=== PATIENT | female | born 2000 | race Caucasian/White ===

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

== ENCOUNTER 2022-12-13 23:54 | Inpatient (IN) | payer MEDICAID ==
[~2022-12-13] VITALS: Ht 167.6 cm; Wt 97.7 kg
[2022-12-14] VITALS (51 sets, daily range): BP systolic 84–136; BP diastolic 49–88; PULSE 57–111; TEMP 97.7–98.4
[2022-12-14 01:30] LABS: BASO % 0.2 % (0.0-2.0); EOS # 0.2 K/mm3 (0.0-0.7); EOS % 2.2 % (0.0-4.0); GRAN # 6.2 K/mm3 (1.4-6.5); GRAN % 63.3 % (42.2-75.2); HEMOGLOBIN 11.9 g/dl (12.5-16.0); LYMPH # 2.7 K/mm3 (1.2-3.4); LYMPH % 27.3 % (20.0-51.0); MEAN CELL VOLUME 94 fl (80.0-100.0); MEAN CORPUSCULAR HEMOGLOBIN 33 pg (27-31); MEAN CORPUSCULAR HGB CONC 35 g/dl (33.0-37.0); MEAN PLATELET VOLUME 8.9 fl (7.4-10.4); MONO # 0.7 K/mm3 (0.1-0.6); MONO % 6.6 % (1.7-9.3); PLATELET COUNT 248 K/mm3 (130-400); RED BLOOD COUNT 3.59 M/mm3 (4.10-5.30); REDCELL DISTRIBUTION WIDTH-CV 12.8 % (11.5-14.5)
[2022-12-14 01:32] LABS: HEMATOCRIT 33.7 % (37.0-47.0)
[2022-12-14 01:51] LABS: TRICYCLIC ANTIDEPRESS URINE NEGATIVE
--- NOTE | 2022-12-14 02:30 | NUR ---
Pt sleeping, turns over in bed, FHT's not tracing. Doppler 130's.
--- NOTE | 2022-12-14 04:35 | NUR ---
Pt writhing on bed, moaning with contractions, FOB's mother states "she needs that epidural as soon as she can get it"
--- NOTE | 2022-12-14 05:15 | NUR ---
Difficult to maintain FHR tracing r/t pt moving around in bed, Explained to pt that it is very important that we have a continous monitor tracing on baby.
--- NOTE | 2022-12-14 05:45 | NUR ---
Pt returns from bathroom, sits on edge of bed for epidural placement. D>Jacky CUPOLA TENDER into room for anesthesia, see anesthesia record. Enloe through epidrual placement pt removes pulse ox.
--- NOTE | 2022-12-14 06:00 | NUR ---
to semi-fowlers. FHT's 70's with peak of UC, tp WR FHT's90's-100's. Dr Horn into room, places FSE. 4 cm, to WL. 0610 Pitocin gtt off, LR to bolus. 0611 FHT's 120's.
--- NOTE | 2022-12-14 06:10 | NUR ---
REPORT RECIEVED FROM NIGHT NURSE. PATIENT RECIEVED EPIDURAL AND FSE JUST PLACED BY . BABY IS RECOVERING FROM VARIABLE DECELS. THIS RN AT BEDSIDE TO EVALUATE BLOOD PRESSURE AND FHR TRACING.
--- NOTE | 2022-12-14 06:45 | NUR ---
PATIENT REPOSITIONED FOR WATERMAN PLACEMENT. FHR TRACING SHOWS VARIABLE DECEL INTO THE 60s. THIS RN HAS FATHER OF BABY HELP TILT TO LEFT LATERAL WHILE PREPARING WATERMAN TRAY. HEART TRACING RECOVERS FROM VARIBALE AND WATERMAN IS PLACED. SVE AT THIS TIME /-1. THIS RN REPOSITIONS PATIENT TO LEFT LATERAL AND REMAINS AT BEDSIDE TO EVALUATE TRACING FURTHER.
--- NOTE | 2022-12-14 07:20 | NUR ---
VARIBALES NOTED ON THE FHR TRACING. THIS RN IN PATIENT ROOM TO REPOSITION. LL PEANUT BALL, BABY RECOVERS AND GOES INTO ANOTHER DECELERATION FOR 2.5 MINUTES. PATIENT REPOSITIONED RIGHT LATERAL. BABY RECOVERS AND BLOOD PRESSURE 97/58, EPHEDRINE GIVEN SEE eMAR. RECHECKED BLOOD PRESSURE 114/66, PATIENT COMPLAINS OF RACING HEART AND NAUSEA, VOMITS AND REPORTS FEELING BETTER AFTER VOMITING. 0749- SVE 7-8/90/-1. PATIENT REPOSITIONED RIGHT LATERAL. THIS RN REMAINS AT BEDSIDE TO EVALUATE RECOVERY OF FHR TRACING AND BLOOD PRESSURE TRENDS. 0756- NOTIFIED SEE PHYSICIAN NOTIFICATION.
--- NOTE | 2022-12-14 09:00 | NUR ---
09-RN AT BEDS[place] [facility] [place] E . PATIENT REPOSITIONED RIGHT LEG STIRUP, LEFT LATERAL. 09- ON UNIT REVIEWING FHR TRACING AND PATIENT CHART. 904- IN PATIENTS ROOM INTRODUCING SELF. [facility] [place] PATIENT REPOSITIONED LL WITH RIGHT LEG IN STIRUP.
--- NOTE | 2022-12-14 11:00 | NUR ---
1051-SVE PER . . FOLLOWING SVE FHR TRACING DECELS INTO THE 60s. PITOCIN OFF, LR BOLUS, PATIENT REPOSITIONED KNEE CHEST. FHR TRACING SHOWS RECURRENT VARIABLE DECELERATIONS. DISCUSSES POSSIBILITY OF C/S WITH PATIENT. 1113- SVE PER . DECISION FOR C/S DISCUSSED WITH PATIENT. PATIENT AGREES AND IS PREPARED FOR TRANSPORT TO OPERATING ROOM. FHR TRACING RECOVERS FROM RECURRENT VARIABLES. 1127- PATIENT DISCONNECTED FROM EFM AND TOCO AND TAKEN VIA BED TO OPERATING ROOM FOR C/S.
[2022-12-15] VITALS: BP 114/73; PULSE 64; TEMP 98.4
[2022-12-15 08:04] VITALS: BP 100/63; PULSE 66; TEMP 97.8
[2022-12-15] MEDS ORDERED: TYLENOL 500MG500 MG PO (08:31)
[2022-12-15] MEDS ORDERED: IBU800 M1 PO (08:31)
[2022-12-15] MEDS ORDERED: ROXICODONE 55 MG/TAB PO (08:31)
[2022-12-15] MEDS ORDERED: LEXAPRO 10MG10 MG PO (08:32)
--- NOTE | 2022-12-15 09:04 | NUR ---
Initial visit; Patient thanked Environmental Inspector for looking in on her and son and offering a "Special [place]" for him. Environmental Inspector thanked mom for choosing our hospital.
--- NOTE | 2022-12-15 09:22 | NUR ---
Flu vaccine status documented by one nurse as needed and requested and by another nurse as current and not needed. Per pt, received flu vaccine at [facility] this season and does not need during this stay.
--- NOTE | 2022-12-15 12:54 | NUR ---
This NONA and NONA Gibbs met with MOB to assess needs. Per patient, she is currently living with her father Channing. She is not with the FOB , Maikel Ko ([phone]) but they are planning on coparenting and he has been actively involved during her stay at the hospital. MOB reports that she has all basic care needs for the baby. She is planning on formula feeding , but is hoping to pump and dump until she is able to breast feed. She admits to having access to a pump at home. MOB states that she is not currently working but is planning to start working and has childcare arranged through a neighbor who runs an in home day care along with her father, the FOB and the paternal grandmother. MOB admits to utilizing Delta 8 gummies to assist with nausea at the beginning of her , but states she hasn't smoked " in a few years". Per OB documentation, patient arrived to multiple appointments with the smell of marijuana. MOB verbalizes that she would like treatment for THC use. Patient also verbalizes that she is currently seeking treatment from [facility] for her anxiety and depression and is currently on Lexapro and sees a therapist there. Patient is provided the [employer] Resource guide is provided to her along with the drug and alcohol resource guide.
[2022-12-15 16:35] VITALS: BP 121/73; PULSE 84; TEMP 97.8
[2022-12-15 21:00] VITALS: BP 115/60; PULSE 94; TEMP 97.9
[2022-12-16 06:40] VITALS: BP 115/67; PULSE 76
--- NOTE | 2022-12-16 12:27 | NUR ---
EDUCATIONAL VIDEOS OFFERED AND WATCHED BY BOTH PARENTS
[2022-12-16 16:00] VITALS: BP 114/62; PULSE 85; TEMP 98
[2022-12-16 20:20] VITALS: BP 107/60; PULSE 68; TEMP 98
[2022-12-17 07:15] VITALS: BP 117/74; PULSE 61; TEMP 98.2
== END 2022-12-17 12:30 | disposition home or self-care (01) | DRG 787 ==
LOC: LDRO 23:54 → LDR 12-14 00:44 → OB 12-14 00:44 → LDR 12-14 01:00 → OB 12-14 13:00
PROVIDERS: Student in an Organized Health Care Education/Training Program; ADMIT Obstetrics & Gynecology
PROC: 10D00Z1 Extraction of Products of Conception, Low, Open Approach (ICD-10-PCS; principal; 2022-12-14)
DX: O99.344 Other mental disorders complicating childbirth (principal); O99.323 Drug use complicating pregnancy, third trimester; O99.214 Obesity complicating childbirth; O76 Abnormality in fetal heart rate and rhythm complicating labor and delivery; O62.0 Primary inadequate contractions; Z37.0 Single live birth; F32.A Depression, unspecified; F41.3 Other mixed anxiety disorders; F12.90 Cannabis use, unspecified, uncomplicated; O99.333 Smoking (tobacco) complicating pregnancy, third trimester; F17.290 Nicotine dependence, other tobacco product, uncomplicated; Z3A.39 39 weeks gestation of pregnancy
CPT/HCPCS: J0171; J0690; J1885; J2370; J2405; J2590; J2795; J7120